=== PATIENT | female | born 1995 | race Caucasian/White ===

== ENCOUNTER 2019-05-25 15:20 | Inpatient (IN) | payer OTHER ==
[~2019-05-25] VITALS: Ht 149.9 cm; Wt 122.0 kg
[~2019-05-25 15:20] MED LIST: OSEL75CA PO
[2019-05-25] MEDS ORDERED: FOLIC ACID0.8 M1 PO (18:47)
[2019-05-25] MEDS ORDERED: PRENATABS RX T1 EACH PO (18:47)
[2019-05-25] MEDS ORDERED: PNEU16DI2 (18:48)
[2019-05-25] MEDS ORDERED: AMPICILLIN TRI500 MG PO (18:48)
== END 2019-05-28 17:08 | disposition home or self-care (01) | DRG 807 ==
LOC: OBS/DEL 15:20 → OB/GYN 18:39 → OBS/DEL 18:39 → LDR 18:39 → OB/GYN 05-26 13:06
PROVIDERS: ADMIT Specialist
PROC: 4A1HXCZ Monitoring of Products of Conception, Cardiac Rate, External Approach (ICD-10-PCS; 2019-05-25)
PROC: 10E0XZZ Delivery of Products of Conception, External Approach (ICD-10-PCS; principal; 2019-05-26)
PROC: 0W8NXZZ Division of Female Perineum, External Approach (ICD-10-PCS; 2019-05-26)
DX: O80 Encounter for full-term uncomplicated delivery (principal); Z37.0 Single live birth; Z3A.39 39 weeks gestation of pregnancy; Z22.330 Carrier of Group B streptococcus